=== PATIENT | female | born 1995 | race African-American/Black ===

== ENCOUNTER 2024-04-06 08:51 | Emergency (ER) | payer MEDICAID, OTHER ==
[~2024-04-06] VITALS: Ht 160 cm; Wt 66.0 kg
[2024-04-06 08:59] VITALS: O2SAT 99
[2024-04-06] MEDS ORDERED: ONDANSETRON HCL 4MG/2ML INJ IV STA (09:23)
[2024-04-06] MEDS ORDERED: MORPHINE SULFATE 4 MG/ML INJ (FOR IV/IM USE) IV STA (09:23)
[2024-04-06] MEDS ORDERED: CLINDAMYCIN 600 MG in DEXTROSE 5% WATER 50 ML IV ONE (09:30)
[2024-04-06 09:43] LABS: BASOPHILS % 0.2 % (0.0-2.0); DIFFERENTIAL COMMENT 0; EOSINOPHILS % 0.2 % (0.0-5.0); HEMATOCRIT. 29.9 % (36.0-48.0); HEMOGLOBIN. 10.2 g/dL (12.0-16.0); LYMPHOCYTES % 8.7 % (20.0-50.0); MEAN CORPUSCULAR HEMOGLOBIN 24.5 pg (28.0-32.0); MEAN CORPUSCULAR VOLUME 71.9 fL (81.0-99.0); MEAN PLATELET VOLUME 8.9 fl (7.4-10.4); MONOCYTES % 6.2 % (2.0-8.0); NEUTROPHILS % 84.7 % (40.0-76.0); PLATELET 283 x1000/uL (130-400); RED BLOOD CELL COUNT 4.16 mill/uL (4.2-5.4); RED CELL DISTRIBUTION WIDTH 15.8 % (11.6-14.6); WHITE BLOOD COUNT 12.6 x1000/uL (4.5-11.0)
[2024-04-06 09:50] LABS: CHLORIDE 106 mEq/L (98-107); SODIUM 138 mEq/L (136-145)
[2024-04-06 09:51] LABS: CALCIUM 9.5 mg/dL (8.7-10.4); CARBON DIOXIDE 24 mEq/L (21-32)
[2024-04-06 09:56] LABS: CREATININE 0.9 mg/dL (0.6-1.0); GLUCOSE 86 mg/dL (70-105); UREA NITROGEN BLOOD 12 mg/dL (9-23)
[2024-04-06 10:11] LABS: HCG SCREEN NEGATIVE
[2024-04-06] MEDS: CLINDAMYCIN 600MG PREMIX 50 ML IV NR (10:19)
[2024-04-06] MEDS: MORPHINE SULFATE 4 MG/ML INJ (FOR IV/IM USE) IV NR (10:19)
[2024-04-06] MEDS: ONDANSETRON HCL 4MG/2ML INJ IV NR (10:19)
[2024-04-06] MEDS: SODIUM CHLORIDE 0.9% 1,000 ML IV ONE (10:19)
[2024-04-06 10:20] VITALS: BP 118/76; PULSE 64; RESP 16; TEMP 37.00296; O2SAT 99
[2024-04-06 11:05] LABS: CLARITY URINE CLEAR (CLEAR); COLOR URINE YELLOW (YELLOW); GLUCOSE URINE NEGATIVE (NEGATIVE); KETONES URINE 1+ (NEGATIVE); LEUKOCYTE ESTERASE URINE TRACE (NEGATIVE); NITRITE URINE NEGATIVE (NEGATIVE); OCCULT BLOOD URINE TRACE (NEGATIVE); PROTEIN URINE NEGATIVE (NEGATIVE); SPECIFIC GRAVITY URINE 1.026 (1.005-1.030)
[2024-04-06 11:17] LABS: BACTERIA URINE 1+; HYALINE CASTS URINE 0-5 /lpf; MUCUS URINE 1+ /lpf (< = 2+); SQUAMOUS EPITHELIAL CELL URINE 2+ /lpf (RARE/1+); YEAST URINE NONE SEEN
[2024-04-06] MEDS: LIDOCAINE HCL 1% 20ML VIAL INFIL ONE (11:45)
[2024-04-06] MEDS ORDERED: CLIN-194 MT (14:00)
[2024-04-06] MEDS ORDERED: TOPUD MT (14:00)
[2024-04-06] MEDS ORDERED: IBUP-1523 MT (14:00)
== END 2024-04-06 15:41 | disposition home or self-care (01) ==
LOC: ER 09:10
DX: K61.1 Rectal abscess (principal); J45.909 Unspecified asthma, uncomplicated
CPT/HCPCS: 80048; 81003; 84703; 83605; 85025; 36415; 74176; 10060; 96365; 96366; 96375; 99285; J3490 ×2; J2405; J2270; J7030; Z7610 ×5; J7060

== ENCOUNTER 2024-04-09 12:34 | Emergency (ER) | payer OTHER ==
[~2024-04-09] VITALS: Ht 165.1 cm; Wt 75.0 kg
[~2024-04-09 12:34] MED LIST: CLIN-194 MT; IBUP-1523 MT; TOPUD MT
[2024-04-09 12:36] VITALS: PULSE 102; RESP 18; O2SAT 97
[2024-04-09 12:49] VITALS: BP 132/67; TEMP 98.6; O2SAT 99
== END 2024-04-09 14:32 | disposition home or self-care (01) ==
LOC: ER 12:50
DX: Z48.00 Encounter for change or removal of nonsurgical wound dressing (principal); J45.909 Unspecified asthma, uncomplicated
CPT/HCPCS: 99281

== ENCOUNTER 2024-06-16 11:06 | Emergency (ER) | payer OTHER ==
[~2024-06-16] VITALS: Ht 162.6 cm; Wt 69.0 kg
[2024-06-16 11:18] VITALS: BP 128/90; RESP 18; TEMP 98.9; O2SAT 99
[2024-06-16 11:20] VITALS: PULSE 107; O2SAT 100
[2024-06-16] MEDS ORDERED: AMOX1TAB16 MT (11:59)
[2024-06-16] MEDS ORDERED: BO1 TP (11:59)
[2024-06-16] MEDS: TETANUS, DIPHTHERIA, PERTUSSIS VAC/PF 0.5ML (>10YR OLD) IM ONE (12:53)
== END 2024-06-16 12:55 | disposition home or self-care (01) ==
LOC: ER 11:11
DX: S41.151A Open bite of right upper arm, initial encounter (principal); J45.909 Unspecified asthma, uncomplicated; Z79.899 Other long term (current) drug therapy; Y04.1XXA Assault by human bite, initial encounter; Y93.89 Activity, other specified; Y92.89 Other specified places as the place of occurrence of the external cause; Y99.8 Other external cause status
CPT/HCPCS: 90471; 90715; 99283